=== PATIENT | male | born 1995 | race African-American/Black ===

== ENCOUNTER 2021-01-12 10:24 | Emergency (ER) | payer OTHER, SELFPAY ==
--- NOTE | ~2021-01-12 | CT_ITS ---
EXAMINATION: CT abdomen pelvis wo con DATE: 01/12/2021 11:40 INDICATION: Left flank pain. TECHNIQUE: Computed tomography (CT) of the abdomen and pelvis was performed without intravenous contr ast. Automated exposure control and iterative reconstruction technique were employed. The dose-length product was 710.03 mGy-cm. COMPARISON: None. FINDINGS: The visualized portions of the lung bases demonstrate minimal atelectasis on the left. No p leural effusion. The heart size is normal. No pericardial effusion. The liver, gallbladder, spleen, p ancreas, adrenal glands, and kidneys are normal. There is a 3 mm stone at left ureterovesicular junct ion. There is mild left hydroureter. There are no dilated loops of bowel. The appendix is normal. The re is mild thoracolumbar spondylosis. IMPRESSION: 1. 3 mm stone at left ureterovesicular junction with mild left hydroureter. Reviewed, dictated and finalized at location B.
--- NOTE | ~2021-01-12 | XR_ITS ---
EXAMINATION: XR abdomen/kub 1V DATE: 01/12/2021 12:28 INDICATION: Renal stone at the left ureterovesicular junction. TECHNIQUE: A supine view of the abdomen on 2 radiographs was obtained. COMPARISON: CT dated 01/12/2021 FINDINGS: Subtle 2 mm stone at the left ureterovesicular junction. No other evident urolithiasis. Normal bowel gas pattern. Visualized lung bases are clear. Heart size is normal. IMPRESSION: 1. Subtle 2 mm stone at the left ureterovesicular junction. Reviewed, dictated and finalized at location A.
[2021-01-12 10:28] VITALS: BP 159/76; PULSE 85; RESP 18; TEMP 36; O2SAT 100
--- NOTE | 2021-01-12 11:30 | ED.ABDPAIN ---
HPI - Abdominal Pain General Chief Complaint: Abdominal Pain Stated Complaint: abd pain, back pain Time Seen by Provider: 01/12/21 11:11 Source: patient Mode of arrival: ambulatory Limitations: no limitations History of Present Illness HPI narrative: This is a 25 year old male that presents to the ER for left sided flank pain since this morning. Reports the pain is now radiating to his left abdomen. The pain has been intermittent over the last week, but worsened today. Associated with nausea, vomiting and dysuria. Denies fever, or hematuria. Related Data Allergies Allergy/AdvReac Type Severity Reaction Status Date / Time No Known Allergies Allergy Verified 01/12/21 10:32 Review of Systems Review of Systems: Narrative: CONSTITUTIONAL: Denies fever GASTROINTESTINAL: Reports abdominal pain, nausea, vomiting GENITOURINARY: Reports dysuria. Denies hematuria. All systems reviewed & are unremarkable except as noted in HPI and below PMFSH Past Medical History Medical History (Updated 01/12/21 @ 14:07 by Vivi Reese PA-C) No active medical problems Social History Social History (Updated 01/12/21 @ 11:33 by Vivi Reese PA-C) Substance use: current Substance use type: marijuana Gender identity (if verbalized by the patient): Male Exam Narrative: Exam Narrative: GENERAL: Well-appearing, obese, and in no acute distress. HEAD: Normocephalic, atraumatic. EYES: EOMI. CHEST: Clear to auscultation. No respiratory distress. No wheezes rales or rhonchi HEART: Regular rate and rhythm. No murmur heard. Normal peripheral pulses. ABDOMEN: Soft, nondistended, normal active bowel sounds. Mild tenderness to palpation throughout the left lower abdomen, without guarding. No CVA tenderness EXTREMITIES: Normal range of motion. No edema. SKIN: Warm, dry, no rash. NEURO: No focal deficits. Alert and oriented x3. PSYCH: Normal mood and affect Course Consultations Consultation #1: Spoke with Dr. Martinez about patient and work-up. Would like patient to be given Flomax, [place] and Toradol. Will be given urine strainer. Will follow-up with patient in clinic Date: 01/12/21 Time: 14:04 Vital Signs Vital signs: Vital Signs Temperature 96.8 F L 01/12/21 10:28 Pulse Rate 85 01/12/21 10:28 Respiratory Rate 18 01/12/21 10:28 Blood Pressure 159/76 H 01/12/21 10:28 Pulse Oximetry 100 01/12/21 10:28 Temperature 96.8 F L 01/12/21 10:28 Pulse Rate 79 01/12/21 12:52 Respiratory Rate 19 01/12/21 12:52 Blood Pressure 124/83 01/12/21 12:52 Pulse Oximetry 99 01/12/21 12:52 MDM - Abdominal Pain MDM Narrative Medical decision making narrative: Patient presents to the emergency department for left-sided flank pain radiating to the abdomen. He is afebrile and nontoxic-appearing. CBC with mild leukocytosis 11.4. Metabolic panel without concerning findings. UA without evidence of infection. CT scan abdomen and pelvis shows a left 3 mm stone at the UVJ with mild left hydroureter. KUB positively identifies the stone. Patient's pain under control with IV Tylenol and morphine. Spoke with Dr. Martienz about patient and work-up. Would like patient to be given Flomax, [place] and Toradol. Will be given urine strainer. Will follow-up with patient in clinic. Patient is stable and felt appropriate for further outpatient evaluation. He was given warnings to return to the ER Lab Data Attestation: I reviewed the patient's lab results. Result diagrams: 01/12/21 11:57 01/12/21 11:57 Labs: Lab Results 01/12/21 01/12/21 01/12/21 Range/Units 11:57 11:57 12:57 WBC 11.4 H (4.5-10.0) K/mm3 RBC 4.99 (4.6-6.20) M/mm3 Hgb 15.7 (14.0-18.0) g/dL Hct 47.3 (42.0-52.0) % MCV 94.8 (80-100) fl MCH 31.5 (26-34) pg MCHC 33.2 (32-36) g/dl RDW 12.0 (11.5-14.5) % Plt Count 291 (150-375) k/mm3 MPV 10.0 (7.4-10.4) fl Immature Gran % (Auto) 1.0 H (
[2021-01-12] MEDS: MORPHINE SULFATE (*CRX) 4 MG/ML INJ IV PUSH (11:59)
[2021-01-12] MEDS: SODIUM CHLORIDE 0.9% IV 1,000 ML 999 ML IV CONT (11:59)
[2021-01-12] MEDS: ONDANSETRON INJ 4 MG/2 ML VIAL IV PUSH (11:59)
[2021-01-12 12:02] VITALS: BP 143/90; PULSE 79; RESP 15; O2SAT 98
--- NOTE | 2021-01-12 12:02 | PC.NURSE ---
pt given urinal to attempt u/a, unable to provide at this time, declined straight cath, fluids infusing
[2021-01-12 12:14] LABS: Basophils Percent Auto 0.4 % (0.2-1.2); Eosinophils Percent Auto 0.4 % (0-4.4); Hematocrit 47.3 % (42.0-52.0); Hemoglobin 15.7 g/dL (14.0-18.0); Immature Granulocyte Absolute 0.11 K/mm3 (0.00-0.031); Lymphocytes Absolute Auto 1.25 K/mm3 (0.9-3.2); Mean Corpuscular HGB Conc 33.2 g/dl (32-36); Mean Corpuscular Hemoglobin 31.5 pg (26-34); Mean Corpuscular Volume 94.8 fl (80-100); Monocytes Absolute Auto 0.7 K/mm3 (0.1-0.6); Monocytes Percent Auto 6.5 % (2.6-8.5); Neutrophils Absolute Auto 9.2 K/mm3 (1.3-6.7); Neutrophils Percent Auto 80.7 % (45.5-73.1); Platelet Count Result 291 k/mm3 (150-375); Red Blood Count 4.99 M/mm3 (4.6-6.20); White Blood Count 11.4 K/mm3 (4.5-10.0)
[2021-01-12 12:24] LABS: Alanine Aminotransferase 37 U/L (4-50); Albumin Level 4.4 g/dL (3.5-5.1); Alkaline Phosphatase 80 U/L (38-126); Anion Gap 5 mmol/L (8-16); Aspartate Amino Transferase 31 U/L (17-59); Bilirubin,Total 0.3 mg/dL (0.2-1.3); Blood Urea Nitrogen 13 mg/dL (9-20); Calcium 9.2 mg/dL (8.4-10.2); Carbon Dioxide 29 mmol/L (22-30); Chloride 105 mmol/L (98-107); Estimated CRCL calculation 137 ml/min; Estimated Glomerular Filt Rate > 60; Glucose 121 mg/dL (75-110); Lipase 22 U/L (23-300); Potassium 4.4 mmol/L (3.4-5.0); Sodium 139 mmol/L (137-145)
--- NOTE | 2021-01-12 12:49 | PC.NURSE ---
Pt states he will attempt again to provide u/a sample. Declines straight cath.
[2021-01-12 12:52] VITALS: BP 124/83; PULSE 79; RESP 19; O2SAT 99
[2021-01-12 13:25] LABS: Add Urine Microscopic? YES; Appearance Urine Clear (Clear); Bilirubin Urine Negative (Negative); Blood Urine Negative (Negative); Color Urine Yellow (Yellow); Glucose Urine UA Negative (Negative); Ketones Urine Negative (Negative); Leukocyte Esterase Ur Negative LEU/UL (Negative); Mucus Urine Moderate /lpf; Nitrate Urine Negative (Negative); Protein Urine 1+ mg/dL (Negative); RBC Urine 0-2 /hpf (0-2); Urobilinogen Urine Negative mg/dL (<2.0); WBC Urine 0-3 /hpf
[2021-01-12 13:32] LABS: Specific Grav Ur 1.031 (1.001-1.035)
[2021-01-12 14:25] VITALS: BP 154/77; PULSE 73; RESP 14; O2SAT 99
== END 2021-01-12 14:25 | disposition home or self-care (01) ==
PROVIDERS: Physician Assistant; Emergency Provider Emergency Medicine; PCP Family Medicine
DX: N13.4 Hydroureter (principal); N20.1 Calculus of ureter
CPT/HCPCS: 36415; 74018; 74176; 80053; 81001; 83690; 85025; 96361; 96365; 96375; 99284; J0131; J2270; J2405; J7030